=== PATIENT | male | born 1985 | race Caucasian/White ===

== ENCOUNTER 2021-08-15 13:57 | Inpatient (IN) | payer OTHER ==
[2021-08-15] MEDS ORDERED: ACETAMINOPHEN 325 MG TABLET (FP) PO PRN ×2 (16:26)
[2021-08-15] MEDS ORDERED: chlordiazePOXIDE HCL 25 MG CAPSULE PO PRN (16:26)
[2021-08-15] MEDS ORDERED: MENTHOL/PHENOL 1 EACH UD MM PRN (16:26)
[2021-08-15] MEDS ORDERED: BISMUTH SUBSALICYLATE 524 MG/30 ML PO PRN (16:26)
[2021-08-15] MEDS ORDERED: MAG HYDROX/AL HYDROX/SIMETH 30 ML UNIT-DOSE CUP PO PRN (16:26)
[2021-08-15] MEDS ORDERED: ONDANSETRON *ODT* 4 MG TABLET SL PRN (16:26)
[2021-08-15] MEDS ORDERED: MAGNESIUM CITRATE 300 ML BOTTLE PO PRN (16:26)
[2021-08-15] MEDS ORDERED: LOPERAMIDE HCL 2 MG CAPSULE PO PRN (16:26)
[2021-08-15] MEDS ORDERED: chlordiazePOXIDE HCL 25 MG CAPSULE PO SCH (17:00)
[2021-08-15 17:06] VITALS: BMI 22.9
[2021-08-15] MEDS ORDERED: hydrOXYzine PAMOATE 25 MG CAPSULE (FP) PO SCH (18:00)
[2021-08-15] MEDS ORDERED: diazePAM 5 MG TABLET PO ONE (20:53)
[2021-08-15] MEDS: MELATONIN 5 MG TABLETS PO SCH (21:15)
[2021-08-15] MEDS: THIAMINE HCL 100 MG TABLET (FP) PO SCH (21:16)
[2021-08-15] MEDS: IBUPROFEN 400 MG TABLET (FP) PO PRN (21:19)
[2021-08-15] MEDS: PANTOPRAZOLE 20 MG TABLET PO SCH (21:30)
[2021-08-15] MEDS: NICOTINE 10 MG CARTRIDGE (INHALER) IH PRN (21:32)
[2021-08-15] MEDS: diazePAM 5 MG TABLET PO SCH (23:35)
[2021-08-16] MEDS: diazePAM 5 MG TABLET PO SCH ×4 (05:58→22:22)
[2021-08-16] MEDS: diazePAM 5 MG TABLET PO PRN (08:35)
[2021-08-16] MEDS: PRENATAL VITAMINS W/ FOLIC ACID TABLET (FP) PO SCH (10:30)
[2021-08-16] MEDS: PANTOPRAZOLE 20 MG TABLET PO SCH ×2 (10:32→22:22)
[2021-08-16 14:11] LABS: HEMATOCRIT 39.7 % (35.4-49); HEMOGLOBIN 13.6 GM/dL (11.7-16.9); MCH 31.7 pg (25.7-33.7); MCHC 34.3 g/dl (32.0-35.9); MEAN CELL VOLUME 92.5 fl (80-96); MEAN PLT VOLUME 8.7 fl (7.5-11.1); PLATELET COUNT 179 10^3/uL (134-434); RBC 4.29 M/mm3 (4.00-5.60); RDW 13.7 % (11.9-15.9); WHITE BLOOD COUNT 3.2 K/mm3 (4.0-10.0)
[2021-08-16 14:16] LABS: CALCIUM 9.2 mg/dL (8.5-10.1)
[2021-08-16 14:17] LABS: ALBUMIN 3.7 g/dl (3.4-5.0)
[2021-08-16 14:20] LABS: CREATININE 0.8 mg/dL (0.55-1.3)
[2021-08-16 14:22] LABS: BILIRUBIN,TOTAL 0.6 mg/dL (0.2-1); TOT PROT 7.1 g/dl (6.4-8.2)
[2021-08-16] MEDS: GABAPENTIN 100 MG CAPSULE PO SCH ×2 (15:02→22:22)
[2021-08-16] MEDS: NICOTINE 10 MG CARTRIDGE (INHALER) IH PRN (17:35)
[2021-08-16] MEDS: MELATONIN 5 MG TABLETS PO SCH (22:22)
[2021-08-16] MEDS: THIAMINE HCL 100 MG TABLET (FP) PO SCH (22:22)
[2021-08-16] MEDS: hydrOXYzine PAMOATE 25 MG CAPSULE (FP) PO PRN (22:23)
[2021-08-17] MEDS ORDERED: chlordiazePOXIDE HCL 25 MG CAPSULE PO SCH (05:00)
[2021-08-17] MEDS: diazePAM 5 MG TABLET PO SCH ×3 (07:45→22:30)
[2021-08-17] MEDS: GABAPENTIN 100 MG CAPSULE PO SCH ×3 (07:45→22:30)
[2021-08-17] MEDS: diazePAM 5 MG TABLET PO PRN ×3 (08:00→18:54)
[2021-08-17] MEDS: PRENATAL VITAMINS W/ FOLIC ACID TABLET (FP) PO SCH (10:45)
[2021-08-17] MEDS: ESCITALOPRAM OXALATE 10 MG TABLET PO SCH (10:45)
[2021-08-17] MEDS: PANTOPRAZOLE 20 MG TABLET PO SCH ×2 (10:45→22:30)
[2021-08-17] MEDS: MAGNESIUM HYDROX 2400MG/30ML ORAL SUSPENSION 30 ML CUP PO PRN (18:52)
[2021-08-17] MEDS: MELATONIN 5 MG TABLETS PO SCH (22:30)
[2021-08-17] MEDS: THIAMINE HCL 100 MG TABLET (FP) PO SCH (22:30)
[2021-08-17] MEDS: hydrOXYzine PAMOATE 25 MG CAPSULE (FP) PO PRN (22:31)
[2021-08-18] MEDS ORDERED: chlordiazePOXIDE HCL 10 MG CAPSULE PO PRN
[2021-08-18] MEDS ORDERED: chlordiazePOXIDE HCL 10 MG CAPSULE PO SCH (05:00)
[2021-08-18] MEDS: diazePAM 5 MG TABLET PO SCH ×2 (05:28→17:19)
[2021-08-18] MEDS: GABAPENTIN 100 MG CAPSULE PO SCH ×3 (05:28→22:16)
[2021-08-18] MEDS: hydrOXYzine PAMOATE 25 MG CAPSULE (FP) PO PRN ×2 (10:37→22:15)
[2021-08-18] MEDS: diazePAM 5 MG TABLET PO PRN ×2 (10:37→20:24)
[2021-08-18] MEDS: ESCITALOPRAM OXALATE 10 MG TABLET PO SCH (10:37)
[2021-08-18] MEDS: PRENATAL VITAMINS W/ FOLIC ACID TABLET (FP) PO SCH (10:38)
[2021-08-18] MEDS: PANTOPRAZOLE 20 MG TABLET PO SCH ×2 (10:38→22:16)
[2021-08-18] MEDS: NICOTINE 10 MG CARTRIDGE (INHALER) IH PRN (14:09)
[2021-08-18] MEDS: MAGNESIUM HYDROX 2400MG/30ML ORAL SUSPENSION 30 ML CUP PO PRN (17:18)
[2021-08-18] MEDS: METHOCARBAMOL 500 MG TABLET PO PRN (18:14)
[2021-08-18] MEDS: IBUPROFEN 400 MG TABLET (FP) PO PRN (18:59)
[2021-08-18] MEDS: MELATONIN 5 MG TABLETS PO SCH (22:15)
[2021-08-18] MEDS: THIAMINE HCL 100 MG TABLET (FP) PO SCH (22:16)
[2021-08-19] MEDS ORDERED: chlordiazePOXIDE HCL 10 MG CAPSULE PO SCH (05:00)
[2021-08-19] MEDS: GABAPENTIN 100 MG CAPSULE PO SCH ×2 (05:36→13:30)
[2021-08-19] MEDS: METHOCARBAMOL 500 MG TABLET PO PRN (05:37)
[2021-08-19] MEDS: IBUPROFEN 400 MG TABLET (FP) PO PRN (05:37)
[2021-08-19] MEDS ORDERED: diazePAM 5 MG TABLET PO ONE (06:00)
[2021-08-19] MEDS: PANTOPRAZOLE 20 MG TABLET PO SCH (09:42)
[2021-08-19] MEDS: hydrOXYzine PAMOATE 25 MG CAPSULE (FP) PO PRN ×2 (09:43→13:29)
[2021-08-19] MEDS: PRENATAL VITAMINS W/ FOLIC ACID TABLET (FP) PO SCH (09:43)
[2021-08-19] MEDS: ESCITALOPRAM OXALATE 10 MG TABLET PO SCH (09:43)
[2021-08-19] MEDS: NICOTINE 10 MG CARTRIDGE (INHALER) IH PRN (11:39)
[2021-08-19 12:35] VITALS: BP 111/65; PULSE 89; TEMP 96.8
[2021-08-19 14:08] LABS: SARS-CoV-2 NAA Not Detected (Not Detected)
[2021-08-19 15:16] LABS: BASO % 1.2 % (0-2.0); EOS % 7.3 % (0-4.5); HEMOGLOBIN 13.8 GM/dL (11.7-16.9); LYMPH % 37.3 % (8-40); MCH 31.3 pg (25.7-33.7); MCHC 33.7 g/dl (32.0-35.9); MEAN PLT VOLUME 8.9 fl (7.5-11.1); MONO % 17.2 % (3.8-10.2); PLATELET COUNT 165 10^3/uL (134-434); RDW 14.3 % (11.9-15.9); WHITE BLOOD COUNT 3.9 K/mm3 (4.0-10.0)
[2021-08-20] MEDS ORDERED: chlordiazePOXIDE HCL 10 MG CAPSULE PO ONE (05:00)
== END 2021-08-19 14:50 | disposition home or self-care (01) | DRG 775 ==
LOC: YASAS 13:57 → Y3N 18:38
PROVIDERS: ADMIT Allergy & Immunology; ATTEND Allergy & Immunology
PROC: HZ2ZZZZ Detoxification Services for Substance Abuse Treatment (ICD-10-PCS; principal; 2021-08-15)
DX: F10.230 Alcohol dependence with withdrawal, uncomplicated (principal); F10.24 Alcohol dependence with alcohol-induced mood disorder; F41.8 Other specified anxiety disorders; F32.A Depression, unspecified; H55.00 Unspecified nystagmus; Z87.2 Personal history of diseases of the skin and subcutaneous tissue; Z87.891 Personal history of nicotine dependence
CPT/HCPCS: 36415; 80053; 85025; 85027; 86780; 93005; 93010; C9803; Q0162; U0003; U0005

== ENCOUNTER 2022-02-15 16:43 | Emergency (ER) | payer OTHER ==
[2022-02-15 16:52] VITALS: RESP 18; TEMP 98.4; BMI 25.8
[2022-02-15] MEDS ORDERED: FOLIC ACID INJECTION - 1 MG, THIAMINE HCL 100 MG, MULTIVIT INJECTION ADULT 10 ML in SOD... IVPB ONE (17:41)
[2022-02-15 18:33] LABS: BASO % 1.4 % (0-2.0); EOS % 0.3 % (0-4.5); HEMOGLOBIN 16.4 GM/dL (11.7-16.9); LYMPH % 28.6 % (8-40); MCH 29.8 pg (25.7-33.7); MCHC 34.8 g/dl (32.0-35.9); MEAN CELL VOLUME 85.5 fl (80-96); MEAN PLT VOLUME 7.3 fl (7.5-11.1); MONO % 4.6 % (3.8-10.2); NEUT % 65.1 % (42.8-82.8); PLATELET COUNT 357 10^3/uL (134-434); RDW 13.1 % (11.9-15.9); WHITE BLOOD COUNT 8.5 K/mm3 (4.0-10.0)
[2022-02-15 18:56] LABS: ALBUMIN 4.6 g/dl (3.4-5.0); BLOOD UREA NITROGEN 19.2 mg/dL (7-18); MAGNESIUM 2.4 mg/dL (1.8-2.4)
[2022-02-15 18:59] LABS: CREATININE 1.1 mg/dL (0.55-1.3)
[2022-02-15 19:01] LABS: BILIRUBIN,TOTAL 0.5 mg/dL (0.2-1)
[2022-02-15] MEDS ORDERED: ONDANSETRON 4 MG/2 ML VIAL IVPUSH ONE (19:17)
[2022-02-15] MEDS ORDERED: ONDANSETRON 4 MG/2 ML VIAL ONE (19:18)
[2022-02-15 20:09] VITALS: BP 144/88; PULSE 116
== END 2022-02-15 20:09 | disposition home or self-care (01) ==
LOC: JER 16:43
PROC: 3E033GC Introduction of Other Therapeutic Substance into Peripheral Vein, Percutaneous Approach (ICD-10-PCS; principal; 2022-02-15)
DX: F10.920 Alcohol use, unspecified with intoxication, uncomplicated (principal)
CPT/HCPCS: 36415; 80053; 83735; 85025; 93005; 93010; 99284-25; C9803-CS; U0003; U0005

== ENCOUNTER 2022-02-15 20:46 | Inpatient (IN) | payer OTHER ==
[2022-02-15] MEDS ORDERED: P-EPHED 60MG/TRIPROLIDI 2.5MG TABLET PO PRN (21:40)
[2022-02-15] MEDS ORDERED: ACETAMINOPHEN 325 MG TABLET (FP) PO PRN (21:40)
[2022-02-15] MEDS ORDERED: DICYCLOMINE HCL 10 MG CAPSULE PO PRN (21:40)
[2022-02-15] MEDS ORDERED: BENZOCAINE/MENTHOL (CHLORASEPTIC ) LOZENGE MM PRN (21:40)
[2022-02-15] MEDS ORDERED: MAGNESIUM CITRATE 300 ML BOTTLE PO PRN (21:40)
[2022-02-15] MEDS ORDERED: MAGNESIUM HYDROX 2400MG/30ML ORAL SUSPENSION 30 ML CUP PO PRN (21:40)
[2022-02-15] MEDS ORDERED: guaiFENesin 200 MG/10 ML 10 ML UNIT-DOSE CUPS PO PRN (21:40)
[2022-02-15] MEDS ORDERED: NICOTINE POLACRILEX 2 MG GUM BUC PRN (21:40)
[2022-02-15] MEDS ORDERED: BISMUTH SUBSALICYLATE 524 MG/30 ML PO PRN (21:40)
[2022-02-15] MEDS ORDERED: IBUPROFEN 400 MG TABLET (FP) PO PRN (21:40)
[2022-02-15] MEDS ORDERED: LOPERAMIDE HCL 2 MG CAPSULE PO PRN (21:40)
[2022-02-15] MEDS ORDERED: chlordiazePOXIDE HCL 25 MG CAPSULE PO PRN (21:40)
[2022-02-15] MEDS ORDERED: chlordiazePOXIDE HCL 25 MG CAPSULE ONE (22:54)
[2022-02-15] MEDS: chlordiazePOXIDE HCL 25 MG CAPSULE PO SCH (22:55)
[2022-02-15 23:30] VITALS: BMI 26.9
[2022-02-15] MEDS: ONDANSETRON *ODT* 4 MG TABLET SL PRN (23:52)
[2022-02-15] MEDS ORDERED: ONDANSETRON *ODT* 4 MG TABLET ONE (23:53)
[2022-02-16] MEDS ORDERED: hydrOXYzine PAMOATE 25 MG CAPSULE (FP) PO ONE (00:07)
[2022-02-16] MEDS: hydrOXYzine PAMOATE 25 MG CAPSULE (FP) PO PRN (00:10)
[2022-02-16] MEDS: METHOCARBAMOL 500 MG TABLET PO PRN ×2 (03:03→22:32)
[2022-02-16] MEDS: ACETAMINOPHEN 325 MG TABLET (FP) PO PRN ×3 (03:05→22:31)
[2022-02-16] MEDS: MELATONIN 5 MG TABLETS PO SCH ×2 (03:06→22:30)
[2022-02-16] MEDS: THIAMINE HCL 100 MG TABLET (FP) PO SCH ×2 (03:06→22:30)
[2022-02-16] MEDS: chlordiazePOXIDE HCL 25 MG CAPSULE PO SCH (05:55)
[2022-02-16] MEDS: ONDANSETRON *ODT* 4 MG TABLET SL PRN ×3 (05:56→22:51)
[2022-02-16] MEDS: PRENATAL VITAMINS W/ FOLIC ACID TABLET (FP) PO SCH (11:56)
[2022-02-16] MEDS: NICOTINE 14 MG/24 HOURS TOPICAL PATCH TD SCH (11:56)
[2022-02-16] MEDS: diazePAM 5 MG TABLET PO SCH ×3 (11:57→22:32)
[2022-02-16] MEDS: diazePAM 5 MG TABLET PO PRN ×2 (11:57→16:40)
[2022-02-16 12:00] LABS: HEMATOCRIT 44.7 % (35.4-49); HEMOGLOBIN 15.1 GM/dL (11.7-16.9); MCH 29.2 pg (25.7-33.7); MCHC 33.8 g/dl (32.0-35.9); MEAN CELL VOLUME 86.2 fl (80-96); MEAN PLT VOLUME 8.5 fl (7.5-11.1); PLATELET COUNT 297 10^3/uL (134-434); RBC 5.18 M/mm3 (4.00-5.60); RDW 13.1 % (11.9-15.9); WHITE BLOOD COUNT 11.7 K/mm3 (4.0-10.0)
[2022-02-16 12:14] LABS: CALCIUM 8.9 mg/dL (8.5-10.1)
[2022-02-16 12:15] LABS: ALBUMIN 4.4 g/dl (3.4-5.0); BLOOD UREA NITROGEN 25.5 mg/dL (7-18)
[2022-02-16 12:18] LABS: CREATININE 1.3 mg/dL (0.55-1.3)
[2022-02-16 12:20] LABS: BILIRUBIN,TOTAL 1.3 mg/dL (0.2-1)
[2022-02-16] MEDS: MAG HYDROX/AL HYDROX/SIMETH 30 ML UNIT-DOSE CUP PO PRN (17:06)
[2022-02-16] MEDS: MIRTAZAPINE 15 MG TABLET (FP) PO SCH (22:30)
[2022-02-16] MEDS: GABAPENTIN 300 MG CAPSULE PO SCH (22:30)
[2022-02-17] MEDS ORDERED: chlordiazePOXIDE HCL 25 MG CAPSULE PO SCH (05:00)
[2022-02-17] MEDS: diazePAM 5 MG TABLET PO SCH ×4 (05:59→22:20)
[2022-02-17] MEDS: GABAPENTIN 300 MG CAPSULE PO SCH ×3 (05:59→22:20)
[2022-02-17] MEDS: hydrOXYzine PAMOATE 25 MG CAPSULE (FP) PO PRN ×4 (06:01→22:21)
[2022-02-17] MEDS: ONDANSETRON *ODT* 4 MG TABLET SL PRN ×2 (06:05→17:46)
[2022-02-17] MEDS: METHOCARBAMOL 500 MG TABLET PO PRN (10:18)
[2022-02-17] MEDS: PRENATAL VITAMINS W/ FOLIC ACID TABLET (FP) PO SCH (10:18)
[2022-02-17] MEDS: ESCITALOPRAM OXALATE 10 MG TABLET PO SCH (10:18)
[2022-02-17] MEDS: ARIPiprazole 10 MG TABLET PO SCH (10:19)
[2022-02-17] MEDS: NICOTINE 14 MG/24 HOURS TOPICAL PATCH TD SCH (10:22)
[2022-02-17 11:01] LABS: HEMATOCRIT 42.8 % (35.4-49); MCH 29.6 pg (25.7-33.7); MCHC 34.9 g/dl (32.0-35.9); MEAN CELL VOLUME 84.9 fl (80-96); MEAN PLT VOLUME 8.2 fl (7.5-11.1); PLATELET COUNT 215 10^3/uL (134-434); RBC 5.05 M/mm3 (4.00-5.60); RDW 12.7 % (11.9-15.9); WHITE BLOOD COUNT 6.3 K/mm3 (4.0-10.0)
[2022-02-17 11:18] LABS: CALCIUM 9.5 mg/dL (8.5-10.1)
[2022-02-17 11:19] LABS: ALBUMIN 4.3 g/dl (3.4-5.0); BLOOD UREA NITROGEN 22.5 mg/dL (7-18); CREATININE 1.1 mg/dL (0.55-1.3)
[2022-02-17] MEDS: diazePAM 5 MG TABLET PO PRN (13:14)
[2022-02-17] MEDS ORDERED: TRIMETHOBENZAMIDE HCL 200MG/2ML INJ IM ONE (15:30)
[2022-02-17] MEDS: ACETAMINOPHEN 325 MG TABLET (FP) PO PRN (18:19)
[2022-02-17] MEDS: THIAMINE HCL 100 MG TABLET (FP) PO SCH (22:20)
[2022-02-17] MEDS: MIRTAZAPINE 15 MG TABLET (FP) PO SCH (22:20)
[2022-02-17] MEDS: MAG HYDROX/AL HYDROX/SIMETH 30 ML UNIT-DOSE CUP PO PRN (22:23)
[2022-02-17] MEDS: MELATONIN 5 MG TABLETS PO SCH (22:23)
[2022-02-18] MEDS ORDERED: chlordiazePOXIDE HCL 10 MG CAPSULE PO PRN
[2022-02-18] MEDS ORDERED: chlordiazePOXIDE HCL 10 MG CAPSULE PO SCH (05:00)
[2022-02-18] MEDS: hydrOXYzine PAMOATE 25 MG CAPSULE (FP) PO PRN ×4 (05:39→22:32)
[2022-02-18] MEDS: GABAPENTIN 300 MG CAPSULE PO SCH ×3 (05:39→22:31)
[2022-02-18] MEDS: diazePAM 5 MG TABLET PO SCH ×3 (05:39→22:33)
[2022-02-18] MEDS: ARIPiprazole 10 MG TABLET PO SCH (10:17)
[2022-02-18] MEDS: diazePAM 5 MG TABLET PO PRN ×2 (10:17→17:58)
[2022-02-18] MEDS: METHOCARBAMOL 500 MG TABLET PO PRN (10:17)
[2022-02-18] MEDS: ESCITALOPRAM OXALATE 10 MG TABLET PO SCH (10:17)
[2022-02-18] MEDS: PRENATAL VITAMINS W/ FOLIC ACID TABLET (FP) PO SCH (10:25)
[2022-02-18] MEDS: NICOTINE 14 MG/24 HOURS TOPICAL PATCH TD SCH (10:25)
[2022-02-18] MEDS: ACETAMINOPHEN 325 MG TABLET (FP) PO PRN (13:32)
[2022-02-18] MEDS: IBUPROFEN 600 MG TABLET (FP) PO PRN (17:59)
[2022-02-18] MEDS: MIRTAZAPINE 15 MG TABLET (FP) PO SCH (22:31)
[2022-02-18] MEDS: THIAMINE HCL 100 MG TABLET (FP) PO SCH (22:31)
[2022-02-18] MEDS: MELATONIN 5 MG TABLETS PO SCH (22:31)
[2022-02-19] MEDS: diazePAM 5 MG TABLET PO PRN ×2 (00:53→10:37)
[2022-02-19] MEDS ORDERED: chlordiazePOXIDE HCL 10 MG CAPSULE PO SCH (05:00)
[2022-02-19] MEDS: GABAPENTIN 300 MG CAPSULE PO SCH ×3 (06:21→22:16)
[2022-02-19] MEDS: diazePAM 5 MG TABLET PO SCH ×2 (06:21→18:03)
[2022-02-19 10:22] LABS: CALCIUM 9.4 mg/dL (8.5-10.1)
[2022-02-19 10:23] LABS: ALBUMIN 3.7 g/dl (3.4-5.0); BLOOD UREA NITROGEN 24.7 mg/dL (7-18)
[2022-02-19 10:25] LABS: CREATININE 1.1 mg/dL (0.55-1.3)
[2022-02-19 10:27] LABS: BILIRUBIN,TOTAL 0.6 mg/dL (0.2-1); TOT PROT 7.3 g/dl (6.4-8.2)
[2022-02-19] MEDS: NICOTINE 14 MG/24 HOURS TOPICAL PATCH TD SCH (10:33)
[2022-02-19] MEDS: ESCITALOPRAM OXALATE 10 MG TABLET PO SCH (10:34)
[2022-02-19] MEDS: ARIPiprazole 10 MG TABLET PO SCH (10:34)
[2022-02-19] MEDS: PRENATAL VITAMINS W/ FOLIC ACID TABLET (FP) PO SCH (10:35)
[2022-02-19] MEDS: hydrOXYzine PAMOATE 25 MG CAPSULE (FP) PO PRN ×3 (10:37→22:15)
[2022-02-19] MEDS: METHOCARBAMOL 500 MG TABLET PO PRN ×2 (13:02→19:10)
[2022-02-19] MEDS: POTASSIUM CHLORIDE ORAL LIQUID 20 MEQ/15 ML PO SCH ×2 (13:02→22:15)
[2022-02-19] MEDS: IBUPROFEN 600 MG TABLET (FP) PO PRN (19:09)
[2022-02-19] MEDS ORDERED: NICOTINE 10 MG CARTRIDGE (INHALER) IH PRN (19:52)
[2022-02-19] MEDS: MIRTAZAPINE 15 MG TABLET (FP) PO SCH (22:16)
[2022-02-19] MEDS: MELATONIN 5 MG TABLETS PO SCH (22:16)
[2022-02-19] MEDS: THIAMINE HCL 100 MG TABLET (FP) PO SCH (22:16)
[2022-02-20] MEDS ORDERED: chlordiazePOXIDE HCL 10 MG CAPSULE PO ONE (05:00)
[2022-02-20] MEDS ORDERED: diazePAM 5 MG TABLET PO ONE (06:00)
[2022-02-20] MEDS: hydrOXYzine PAMOATE 25 MG CAPSULE (FP) PO PRN (06:31)
[2022-02-20] MEDS: GABAPENTIN 300 MG CAPSULE PO SCH (06:31)
[2022-02-20 07:28] VITALS: RESP 18
[2022-02-20] MEDS: ESCITALOPRAM OXALATE 10 MG TABLET PO SCH (10:02)
[2022-02-20] MEDS: POTASSIUM CHLORIDE ORAL LIQUID 20 MEQ/15 ML PO SCH (10:02)
[2022-02-20] MEDS: ARIPiprazole 10 MG TABLET PO SCH (10:02)
[2022-02-20] MEDS: PRENATAL VITAMINS W/ FOLIC ACID TABLET (FP) PO SCH (10:03)
[2022-02-20 10:16] VITALS: BP 143/90; PULSE 91; TEMP 97.2
== END 2022-02-20 12:07 | disposition home or self-care (01) | DRG 775 ==
LOC: YASAS 20:46 → Y3N 23:34
PROVIDERS: ADMIT Allergy & Immunology; ATTEND Surgery
PROC: HZ2ZZZZ Detoxification Services for Substance Abuse Treatment (ICD-10-PCS; principal; 2022-02-15)
DX: F10.230 Alcohol dependence with withdrawal, uncomplicated (principal); F10.24 Alcohol dependence with alcohol-induced mood disorder; F41.9 Anxiety disorder, unspecified; F32.A Depression, unspecified; R79.89 Other specified abnormal findings of blood chemistry; Z72.0 Tobacco use; Z72.89 Other problems related to lifestyle
CPT/HCPCS: 36415; 80053; 82947; 83036; 85027; 86780; 87811; C9803-CS; Q0162; U0003; U0005